=== PATIENT | male | born 1980 | race Hispanic/Latino ===

== ENCOUNTER 2020-01-22 11:02 | Emergency (ER) | payer SELFPAY ==
[2020-01-22 11:43] LABS: BASOPHILS % (AUTO) 0.8 % (0.0-5.0); EOSINOPHILS % (AUTO) 3.8 % (0.0-8.0); HEMATOCRIT 46.1 % (42-54); LYMPHOCYTES % (AUTO) 37.1 % (21.0-51.0); MEAN CORPUSCULAR HEMOGLOBIN 26.7 pg (27.0-33.0); MEAN CORPUSCULAR HGB CONC 32.3 g/dL (32.0-36.0); MEAN CORPUSCULAR VOLUME 82.5 fL (79-99); MONOCYTES % (AUTO) 8.2 % (3.0-13.0); NEUTROPHILS % (AUTO) 49.7 % (40.0-77.0); PLATELET COUNT (AUTO) 237 K/uL (130-400); RED BLOOD CELL COUNT(AUTO) 5.59 MIL/uL (4.50-6.20); RED CELL DISTRIBUTION WIDTH 14.2 % (11.0-15.5)
[2020-01-22 11:50] LABS: CREATININE 0.8 mg/dL (0.5-1.5); POTASSIUM 4.2 mmol/L (3.5-5.1)
[2020-01-22 11:54] LABS: RAPID GROUP A STREP NEGATIVE (NEGATIVE)
[2020-01-22 12:36] LABS: APPEARANCE,URINE Clear (CLEAR); BILIRUBIN,URINE Negative (NEGATIVE); COLOR,URINE Yellow (YELLOW); GLUCOSE, URINE (UA) Negative (NEGATIVE); KETONES,URINE Negative (NEGATIVE); LEUKOCYTE ESTERASE ,URINE Negative (NEGATIVE); NITRATE,URINE Negative (NEGATIVE); OCCULT BLOOD,URINE Negative (NEGATIVE); PROTEIN,URINE Negative (NEGATIVE)
[2020-01-22 12:43] LABS: AMPHET/METH SCREEN,URINE NEGATIVE (NEGATIVE); BARBITURATE SCREEN, URINE NEGATIVE (NEGATIVE); BENZODIAZEPINES SCREEN,URINE NEGATIVE (NEGATIVE); CANNABINOID SCREEN,URINE NEGATIVE (NEGATIVE); COCAINE SCREEN,URINE POSITIVE (NEGATIVE); OPIATE SCREEN,URINE NEGATIVE (NEGATIVE); PHENCYCLIDINE SCREEN,URINE NEGATIVE (NEGATIVE)
[2020-01-22] MEDS ORDERED: IBUPROFEN 400 MG TABLET ONE (13:09)
[2020-01-22] MEDS ORDERED: IBUPROFEN 200 MG TAB ONE (13:09)
== END 2020-01-22 13:57 | disposition home or self-care (01) ==
LOC: EDH 11:02
DX: M94.0 Chondrocostal junction syndrome [Tietze] (principal); Z72.0 Tobacco use
CPT/HCPCS: 36415; 71046; 80048; 80305; 81003; 82550; 84484; 85025; 87804; 87880; 93005

== ENCOUNTER 2020-04-18 21:45 | Inpatient (IN) | payer SELFPAY ==
[~2020-04-18] VITALS: Ht 170.2 cm; Wt 76.5 kg
[2020-04-18] MEDS ORDERED: VANCOMYCIN 1GM+NS 250ML 250 ML IV ONE (23:45)
[2020-04-19] VITALS (26 sets, daily range): BP systolic 105–142; BP diastolic 65–91; PULSE 52–86; RESP 13–20; TEMP 97.3–98.8
[2020-04-19] MEDS ORDERED: ONDANSETRON HCL 4 MG/2 ML VIAL IV PRN (01:15)
[2020-04-19] MEDS ORDERED: ACETAMINOPHEN 325 MG TAB PO PRN (01:15)
[2020-04-19] MEDS ORDERED: VANCOMYCIN PROTOCOL PER PHARMACY IV SCH (01:30)
[2020-04-19] MEDS ORDERED: COMPOUND IV REFRIGERATED 1 EACH IVSOLN MISC PRN (01:45)
--- NOTE | 2020-04-19 03:20 | NUR ---
HAND RIGHT HAND 3RD DIGIT SWOLLEN ,RED, WARM TO TOUCH,OPEN WOUND , SCANT AMOUNT OF SEROSANGUINEOUS DRAINAGE, Addendum: 04/19/20 at 0331 by JULIANNE MADRIGAL RN Amended: Links added.
[2020-04-19] MEDS: KETOROLAC TROMETHAMINE 15MG/ML IV PRN (03:50)
[2020-04-19] MEDS ORDERED: FENTANYL CITRATE PF 50 MCG/1 ML 2ML VIAL ONE (09:28)
[2020-04-19] MEDS ORDERED: MIDAZOLAM HCL 1 MG/ML 2ML VIAL ONE (09:28)
[2020-04-19] MEDS ORDERED: CEFAZOLIN SODIUM 1 GM VIAL ONE (09:42)
[2020-04-19] MEDS ORDERED: LIDOCAINE HCL 2% 20ML ONE (09:42)
--- NOTE | 2020-04-19 10:50 | NUR ---
PROCEDURE REPORT RECEIVED FROM TEAGAN RN (PACU). PATIENT S/P DEBRIDEMENT TO RIGHT HAND 3RD DIGIT ABSCESS BY DR. LUKE. DRESSING DRY AND INTACT. PROCEDURE DONE UNDER LOCAL ANESTHESIA AND BLOCK. RESCHEDULE DEBRIDEMENT FOR TUESDAY TO RIGHT HAND 3RD DIGIT. PATIENT AWARE AND VOICED UNDERSTANDING.
[2020-04-19] MEDS: VANCOMYCIN 1.25 GM in SODIUM CHLORIDE 0.9% 250 ML IV SCH (12:44)
[2020-04-19] MEDS: FAMOTIDINE 20MG TAB 20 MG TAB PO SCH ×2 (12:44→19:42)
--- NOTE | 2020-04-19 18:15 | NUR ---
cm note met with patient and states resides at home with spouse, independent with adls and ambulation. no dme. [facility] dc plan [place]. will assist with wound care. [facility] plan is for re debridement of finger on tuesday. Addendum: 04/19/20 at 1820 by ANTONY HICKMAN CM Amended: Links added.
--- NOTE | 2020-04-19 22:40 | NUR ---
SPOKE WITH RODGER GARAY ABOUT PATIENT'S FEVER OF 100 DEGREES AND BOTH BLOOD CULTURES RESULT OF GRAM POSITIVE COCCI CLUSTERS. SHE ORDERED TO CONSULT DOCTOR DUFF AND ORDER PROCALCITONIN FOR THE AM
[2020-04-20] MEDS: VANCOMYCIN 1.25 GM in SODIUM CHLORIDE 0.9% 250 ML IV SCH ×3 (00:51→23:48)
[2020-04-20 04:00] VITALS: BP 123/73; PULSE 63; RESP 16; TEMP 98.8
[2020-04-20 08:00] VITALS: BP 122/69; PULSE 57; RESP 18; TEMP 98
[2020-04-20] MEDS: FAMOTIDINE 20MG TAB 20 MG TAB PO SCH ×2 (08:40→19:34)
[2020-04-20 12:00] VITALS: BP 121/72; PULSE 60; RESP 18; TEMP 98.1
[2020-04-20] MEDS ORDERED: DIPH,PERTUSS(ACELL),TET VAC/PF 0.5 ML VIAL IM ONE (14:00)
[2020-04-20 16:00] VITALS: BP 131/75; PULSE 60; RESP 18; TEMP 98.2
[2020-04-20 19:05] VITALS: BP 130/65; PULSE 80; RESP 17; TEMP 98.6
[2020-04-20 23:24] VITALS: BP 105/59; PULSE 65; RESP 17; TEMP 98.5
[2020-04-21] VITALS (28 sets, daily range): BP systolic 100–132; BP diastolic 57–82; PULSE 53–72; RESP 15–18; TEMP 97.7–99.2
--- NOTE | 2020-04-21 06:24 | NUR ---
PATIENT TAKEN TO OPERATION ROOM FOR RIGHT 3RD FINGER DEBRIDEMENT BY DOCTOR LUKE.
[2020-04-21] MEDS ORDERED: LACTATED RINGERS 1000ML 1,000 ML IV ONE (06:30)
[2020-04-21] MEDS ORDERED: LIDOCAINE PF 2% 5ML ABBOJECT ONE (07:15)
[2020-04-21] MEDS ORDERED: FENTANYL CITRATE PF 50 MCG/1 ML 2ML VIAL ONE (07:16)
[2020-04-21] MEDS ORDERED: MIDAZOLAM HCL 1 MG/ML 2ML VIAL ONE (07:16)
[2020-04-21] MEDS ORDERED: PROPOFOL 10 MG/ML 20ML VIAL IV ONE (07:16)
[2020-04-21] MEDS ORDERED: CEFAZOLIN SODIUM 1 GM VIAL ONE (07:47)
[2020-04-21] MEDS ORDERED: LIDOCAINE HCL-MPF 2% 10ML AMP IJ ONE (07:50)
[2020-04-21] MEDS ORDERED: ZOSYN 3.375GM+NS 50ML 50 ML IV SCH (08:15)
[2020-04-21] MEDS: FAMOTIDINE 20MG TAB 20 MG TAB PO SCH ×2 (09:41→20:06)
[2020-04-21] MEDS: KETOROLAC TROMETHAMINE 15MG/ML IV PRN (09:55)
[2020-04-21] MEDS: VANCOMYCIN 1.25 GM in SODIUM CHLORIDE 0.9% 250 ML IV SCH ×2 (14:42→20:06)
[2020-04-22 04:12] VITALS: BP 104/61; PULSE 74; RESP 16; TEMP 98.8
[2020-04-22] MEDS: VANCOMYCIN 1.25 GM in SODIUM CHLORIDE 0.9% 250 ML IV SCH (04:58)
[2020-04-22 08:00] VITALS: BP 132/70; PULSE 70; RESP 18; TEMP 98.9
[2020-04-22] MEDS: FAMOTIDINE 20MG TAB 20 MG TAB PO SCH ×2 (08:11→19:56)
[2020-04-22] MEDS: CEFAZOLIN SODIUM 1 GM VIAL IVP SCH ×2 (10:51→18:03)
[2020-04-22 12:00] VITALS: BP 116/67; PULSE 76; RESP 18; TEMP 98.2
[2020-04-22 16:00] VITALS: BP 126/78; PULSE 77; RESP 18; TEMP 98
[2020-04-22] MEDS: ACETAMINOPHEN 325 MG TAB PO PRN (18:14)
[2020-04-22 20:00] VITALS: BP 121/66; PULSE 80; RESP 18; TEMP 99.2
[2020-04-22 23:31] VITALS: BP 117/63; PULSE 65; RESP 17; TEMP 99.4
[2020-04-23] MEDS: CEFAZOLIN SODIUM 1 GM VIAL IVP SCH ×3 (02:00→17:29)
[2020-04-23] MEDS: KETOROLAC TROMETHAMINE 15MG/ML IV PRN (02:27)
[2020-04-23] MEDS: HYDROMORPHONE 1 MG/1 ML AMP IVP PRN ×2 (03:24→04:50)
[2020-04-23 04:00] VITALS: BP 106/53; PULSE 68; RESP 17; TEMP 98.6
[2020-04-23 08:09] VITALS: BP 117/60; PULSE 68; RESP 19; TEMP 98.6
[2020-04-23] MEDS: FAMOTIDINE 20MG TAB 20 MG TAB PO SCH ×2 (08:38→23:01)
[2020-04-23 11:16] VITALS: BP 112/66; PULSE 61; RESP 18; TEMP 98.2
--- NOTE | 2020-04-23 14:36 | NUR ---
FAMILY UPDATE PATIENT PREFERS TO SHARE INFORMATION WITH FAMILY HIMSELF, FAMILY NOT CALLED
[2020-04-23] MEDS: ACETAMINOPHEN 325 MG TAB PO PRN (16:21)
[2020-04-23 16:42] VITALS: BP 114/75; PULSE 70; RESP 18; TEMP 98.7
[2020-04-23 19:00] VITALS: BP 110/62; PULSE 71; RESP 16; TEMP 98.4
[2020-04-24] VITALS (7 sets, daily range): BP systolic 97–120; BP diastolic 56–69; PULSE 60–70; RESP 17–20; TEMP 98–98.7
[2020-04-24] MEDS: CEFAZOLIN SODIUM 1 GM VIAL IVP SCH ×3 (02:02→17:44)
[2020-04-24] MEDS: FAMOTIDINE 20MG TAB 20 MG TAB PO SCH ×2 (09:29→21:15)
[2020-04-25] MEDS: CEFAZOLIN SODIUM 1 GM VIAL IVP SCH ×3 (01:54→18:11)
[2020-04-25 04:08] VITALS: BP 110/63; PULSE 56; RESP 17; TEMP 98.2
[2020-04-25 08:00] VITALS: BP 111/72; PULSE 60; RESP 18; TEMP 98
[2020-04-25] MEDS: FAMOTIDINE 20MG TAB 20 MG TAB PO SCH ×2 (09:00→19:15)
[2020-04-25 11:22] VITALS: BP 108/66; PULSE 61; RESP 16; TEMP 97.7
--- NOTE | 2020-04-25 12:03 | NUR ---
CM Note: Dr Chen recs As per Dr Chen pt to stay with same abx iv over the weekend. Will check patient on Tuesday. Plan to give PO abx on DC instead. CM to cont to follow up.
[2020-04-25 16:00] VITALS: BP 115/66; PULSE 64; RESP 16; TEMP 98.1
[2020-04-25 19:57] VITALS: BP 112/73; PULSE 73; RESP 18; TEMP 98.3
[2020-04-26] VITALS (7 sets, daily range): BP systolic 103–122; BP diastolic 51–69; PULSE 60–71; RESP 15–18; TEMP 98–98.9
[2020-04-26] MEDS: CEFAZOLIN SODIUM 1 GM VIAL IVP SCH ×3 (01:11→17:52)
[2020-04-26] MEDS: FAMOTIDINE 20MG TAB 20 MG TAB PO SCH (09:00)
[2020-04-26] MEDS ORDERED: FAMOTIDINE/PF 20 MG/2 ML VIAL IV ONE (10:13)
[2020-04-26] MEDS ORDERED: HYDROCODONE/ACETAMINOPHEN 5/325 MG TAB PO PRN ×2 (10:15)
[2020-04-26] MEDS ORDERED: PHARMACY COMMUNICATION MISC SCH (10:15)
[2020-04-26] MEDS: FAMOTIDINE/PF 20 MG/2 ML VIAL IV SCH (21:19)
[2020-04-27] MEDS: CEFAZOLIN SODIUM 1 GM VIAL IVP SCH ×3 (01:08→17:54)
[2020-04-27 04:00] VITALS: BP 109/60; PULSE 57; RESP 17; TEMP 98.2
[2020-04-27 07:59] VITALS: BP 112/57; PULSE 61; RESP 18; TEMP 97.7
[2020-04-27] MEDS: FAMOTIDINE/PF 20 MG/2 ML VIAL IV SCH ×2 (09:00→22:51)
[2020-04-27 12:12] VITALS: BP 105/62; PULSE 57; RESP 18; TEMP 97.7
[2020-04-27 16:33] VITALS: BP 115/67; PULSE 60; RESP 18; TEMP 98.8
[2020-04-27 19:30] VITALS: BP 116/71; PULSE 63; RESP 18; TEMP 98.3
[2020-04-27 23:56] VITALS: BP 113/52; PULSE 77; RESP 18; TEMP 98.3
[2020-04-28] MEDS: CEFAZOLIN SODIUM 1 GM VIAL IVP SCH ×2 (01:13→09:21)
[2020-04-28 04:00] VITALS: BP 114/64; PULSE 54; RESP 18; TEMP 98
[2020-04-28 07:57] VITALS: BP 115/70; PULSE 52; RESP 18; TEMP 97.6
[2020-04-28] MEDS ORDERED: SODIUM CHLORIDE 0.9% 100 ML IV ONE (09:18)
[2020-04-28] MEDS: FAMOTIDINE/PF 20 MG/2 ML VIAL IV SCH (09:22)
--- NOTE | 2020-04-28 11:34 | NUR ---
RDSCREEN - LOS X 10 Pt admitted for R-Middle finger abscess. Pt s/p I&D procedure. Pt tolerating Regular diet order with no complaint of GI distress. Pt eating at 100%. Recommend continue Regular diet order. RD to continue to monitor. Please notify as nutrition concerns arise. Thank you.
[2020-04-28 11:56] VITALS: BP 118/65; PULSE 65; RESP 18; TEMP 98
== END 2020-04-28 14:30 | disposition home or self-care (01) | DRG 580 ==
LOC: EDH 21:45 → EDHIP 21:46 → 3AH 04-19 03:08
PROVIDERS: ADMIT Internal Medicine; ATTEND Internal Medicine
PROC: 0JBJ0ZZ Excision of Right Hand Subcutaneous Tissue and Fascia, Open Approach (ICD-10-PCS; principal; 2020-04-19 09:25)
PROC: 0PBT0ZZ Excision of Right Finger Phalanx, Open Approach (ICD-10-PCS; 2020-04-21)
PROC: 3E0234Z Introduction of Serum, Toxoid and Vaccine into Muscle, Percutaneous Approach (ICD-10-PCS; 2020-04-21)
DX: L02.511 Cutaneous abscess of right hand (principal); L03.90 Cellulitis, unspecified; R78.81 Bacteremia; B95.61 Methicillin susceptible Staphylococcus aureus infection as the cause of diseases classified elsewhere; K21.9 Gastro-esophageal reflux disease without esophagitis; E11.9 Type 2 diabetes mellitus without complications; E66.9 Obesity, unspecified; Z68.26 Body mass index [BMI] 26.0-26.9, adult; Z23 Encounter for immunization